=== PATIENT | male | born 1960 | race Caucasian/White ===

== ENCOUNTER 2021-06-29 11:40 | Inpatient (IN) | payer OTHER ==
[2021-06-29] MEDS ORDERED: SODIUM CHLORIDE 0.9% 1,000 ML IV STA (11:45)
[2021-06-29] MEDS ORDERED: HEPARIN SODIUM 1,000 UN/ML (10ML VL) IV PRN (11:59)
[2021-06-29] MEDS ORDERED: HEPARIN SOD,PORK IN 0.45% NACL 25,000 UNIT in 0.45% NACL 1 250ML.BAG IV SCH ×2 (12:00→18:15)
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
[2021-06-29] MEDS ORDERED: NALOXONE 0.4 MG/ML 1 ML VIAL IV PRN (12:25)
[2021-06-29] MEDS ORDERED: HYDROmorphone 0.5 MG/0.5 ML SYRINGE IVP PRN (12:25)
[2021-06-29 12:28] LABS: INR 0.9 (<1.2); Prothrombin Time 10.1 sec (9.0-12.0)
[2021-06-29] MEDS ORDERED: PANTOPRAZOLE 40 MG/10 ML VIAL IV SCH (12:30)
[2021-06-29 12:38] LABS: Basophils # (A) 0.2 k/uL (0-0.2); Basophils % (A) 2 %; Eosinophils # (A) 0.5 k/uL (0-0.7); Eosinophils % (A) 5 %; HCT 47.3 % (39.0-53.0); HGB 14.7 gm/dL (13.0-17.5); Lymphocytes # (A) 1.3 k/uL (1.0-4.8); Lymphocytes % (A) 13 %; MCH 29.4 pg (25.0-35.0); MCV 94.9 fL (80.0-100.0); Mean Platelet Volume 7.2; Monocytes # (A) 0.9 k/uL (0-1.0); Monocytes % (A) 9 %; Neutrophils # (A) 6.7 k/uL (1.3-7.7); Neutrophils % (A) 68 %; Platelet Count 372 k/uL (150-450); RBC 4.98 m/uL (4.30-5.90); RDW 14.3 % (11.5-15.5); WBC 9.9 k/uL (3.8-10.6)
[2021-06-29 12:45] LABS: Albumin 4.6 g/dL (3.5-5.0); Total Bilirubin 0.6 mg/dL (0.2-1.3); Total Protein 7.6 g/dL (6.3-8.2)
[2021-06-29] MEDS: SODIUM CHLORIDE 0.9% 1,000 ML IV SCH ×2 (12:47→18:37)
[2021-06-29 13:05] LABS: Potassium 4.7 mmol/L (3.5-5.1)
--- NOTE | 2021-06-29 13:32 | CT ---
EXAMINATION TYPE: CT angio abd aorta w/Runoff DATE OF EXAM: 06/29/2021 INDICATION: right lower leg occlusion CT DLP: 1594.8 mGy.cm Automated Exposure Control for Dose Reduction was Utilized. TECHNIQUE AND CONTRAST: CT scan of the abdomen, pelvis and lower extremity is performed without and with IV Contrast, patient injected with 100 mL of Isovue 370. MIP and 3-D reconstruction images were generated on an [employer] workstation and reviewed COMPARISON: Conventional angiogram dated 07/14/2015 FINDINGS: Extensive arterial atherosclerotic calcifications and atheromatous plaques. Large infrarenal abdomina l aortic aneurysm measuring up to 4 cm with large atheromatous plaque within. The opacified lumen wit hin the aortic aneurysm measures up to 14 mm. No evidence of complete occlusion of the abdominal aort a. No extension of aneurysm into the common iliac arteries. Stenosis of the origin of the celiac trunk yet patent distally. Atherosclerotic yet opacified superio r mesenteric artery. The inferior mesenteric artery is opacified down to the pelvis. Significant sten osis of the origin of the right renal artery yet patent distally. Severe stenosis of the proximal por tion of the left renal artery yet patent distally. Single renal artery supplying each kidney. Extensive atherosclerotic calcification of the iliac arteries and lower extremity arteries. Previous stents of the iliac arteries cannot be excluded. There is complete occlusion of the right common britni c artery as well as the right external iliac artery yet with distal reconstitution likely via collate rals. Patent inferior epigastric arteries. Suboptimal assessment of the internal iliac arteries due t o extensive calcification is apparently opacified. Opacified left common and left external iliac batsheva jolynn without significant stenosis or occlusion. Multiple segments of significant stenosis of the right common femoral, and to a lesser extent the rig ht superficial femoral and right popliteal arteries yet patent distally. Opacified right deep femoral artery with atherosclerotic changes. The right leg arteries are seen opacified down to the ankle. Mu ltiple segments of stenosis are seen involving the left common femoral artery, left superficial femor al artery and left popliteal artery with almost complete occlusion of the right superficial femoral a rtery at its mid to inferior aspects. Opacified atherosclerotic left leg arteries down to the ankle. Grossly unremarkable liver, gallbladder, spleen, pancreas and adrenals. Small left kidney, possibly d ue to chronic left renal artery stenosis. Unremarkable right kidney. Grossly unremarkable urinary javier dder, prostate and seminal vesicles. No gross bowel abnormality. Scattered uncomplicated colonic dive rticulosis. Coronary arterial atherosclerotic calcifications. Small bilateral gynecomastia changes. L eft fat-containing inguinal hernia. No suspicious lymphadenopathy or sizable ascites. No gross aggres sive bone lesion. IMPRESSION: Infrarenal abdominal aortic partially thrombosed aneurysm as detailed above. Extensive arterial ather osclerotic calcifications with complete occlusion of the right common iliac artery and right external iliac arteries as described above. Segments of severe stenosis of the renal arteries and segments of the lower extremity arteries as det dave above. Recommend vascular surgery consultation. Other findings as detailed above.
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
[2021-06-29] MEDS: NICOTINE 21MG/24HR PATCH TRANSDERM SCH (14:56)
--- NOTE | 2021-06-29 15:08 | XR ---
EXAMINATION TYPE: XR chest 1V portable DATE OF EXAM: 06/29/2021 CLINICAL HISTORY: Difficulty breathing and tobacco use. TECHNIQUE: Single AP portable upright view of the chest is obtained. COMPARISON: Chest x-ray from September 18, 2013 FINDINGS: No suspicious focal airspace opacity, pleural effusion, or pneumothorax seen bilaterally. Cardiac silhouette size is mildly enlarged on current exam. Osseous structures are intact. Overlying EKG leads seen currently. IMPRESSION: Mild cardiomegaly without acute pulmonary process.
[2021-06-29] MEDS: IPRATROPIUM-ALBUTEROL 3 ML NEB INHALATION SCH ×2 (15:21→21:02)
[2021-06-29] MEDS ORDERED: IV FLUID CONTINUATION 1,000 ML IV ONE (17:24)
[2021-06-29] MEDS ORDERED: fentaNYL (PF) 50 MCG/ML 2 ML AMP ONE (17:29)
[2021-06-29] MEDS: fentaNYL (PF) 50 MCG/ML 2 ML AMP IVP ONE ×2 (17:48→18:29)
[2021-06-29] MEDS: MIDAZOLAM 2 MG/2 ML VIAL IVP ONE ×2 (17:48→18:29)
[2021-06-29] MEDS ORDERED: LIDOCAINE 1% INJ 10MG/ML (30 ML VIAL-PF) SQ ONE (17:53)
[2021-06-29] MEDS ORDERED: SODIUM CHLORIDE 0.9% 1,000 ML IV ONE (17:55)
[2021-06-29] MEDS ORDERED: IOPAMIDOL-250 100ML BTL INTRAARTER ONE (18:25)
--- NOTE | 2021-06-29 18:28 | P.PCN ---
Date of Procedure: 06/29/21 Operative Findings: Percutaneous peripheral arterial intervention Performing physician Can Ott MD Procedure performed #1 placement of ultrasonic catheter in the right common and right external iliac arteries #2 placement of infusion catheter in the right common and right external iliac arteries #3 an aortogram and bilateral iliacs angiogram #4 ultrasound-guided access of the right common femoral artery Indication This is a 61-year-old gentleman with bilateral lower extremities peripheral arterial disease and status post bilateral iliac stenting who presented to the office today for follow-up was complaining of right foot discomfort. He was found to have cold foot. He was found to have no pulse in the pedal or popliteal or femoral condyle right side. He was sent to the emergency departm ent and underwent a CTA and that revealed occluded right common and right external iliac arteries. The decision was made toward placement of infusion catheter in the right common and right external iliac artery with adjunctive use of ultrasonic catheter. Approach Right common femoral artery Complication None Level of sedation Moderate with sedation length of 22 minutes Procedure description After obtaining an informed consent the patient was brought to the cardiac greens laborer. The right common femoral artery was cannulated using micropuncture technique, the micropuncture wire passed easily then I placed a 6-Kittitian sheath at the right common femoral artery and that was a 6-Kittitian 11 cm sheath. After that I advanced an 035 stiff the Glidewire through the right common and the right external and right common iliac artery all the way to the aorta. Subsequently I advanced an angiographic catheter to the aorta just above the bifurcation. I did perform an aortogram and bilateral iliac angiogram using a power injection and digital subtraction and that revealed occluded right common and right external iliac arteries were we were able to find the landmark of the proximal and distal occlusion. Under fluoroscopy guidance I advanced the infusion catheter overall 35 wire to the distal aorta and subsequently the ultrasonic catheter was advanced inside the infusion catheter. That was also performed under fluoroscopy guidance. The catheters and the sheath secured using sutures. The procedure was completed without any complication Postprocedure management #1 Continue TPA infusion overnight #2 Bring the patient for second look tomorrow morning
[2021-06-29] MEDS: ALTEPLASE 10 MG in SODIUM CHLORIDE 0.9% 90 ML IA ONE (18:36)
[2021-06-29 18:56] LABS: Glucose,Whole Blood 82 mg/dL (75-99)
[2021-06-29] MEDS: HYDROmorphone 1 MG/ML 1 ML SYRINGE IVP PRN ×2 (19:04→22:09)
[2021-06-29 20:17] LABS: HCT 43.5 % (39.0-53.0); HGB 13.7 gm/dL (13.0-17.5); MCH 29.9 pg (25.0-35.0); MCHC 31.6 g/dL (31.0-37.0); MCV 94.6 fL (80.0-100.0); Mean Platelet Volume 7.1; Platelet Count 373 k/uL (150-450); RDW 14.9 % (11.5-15.5); WBC 9.9 k/uL (3.8-10.6)
[2021-06-29] MEDS: PANTOPRAZOLE 40 MG/10 ML VIAL IV SCH (20:19)
[2021-06-29] MEDS: ATORVASTATIN 80 MG TAB PO SCH (20:19)
[2021-06-29 20:25] LABS: INR 0.9 (<1.2); Partial Thromboplastin Time 31.4 sec (22.0-30.0); Prothrombin Time 9.9 sec (9.0-12.0)
[2021-06-29] MEDS ORDERED: ATORVASTATIN 20 MG TAB PO SCH (21:00)
[2021-06-29] MEDS: BUDESONIDE 1 MG/2 ML NEBU INHALATION SCH (21:02)
[2021-06-29 21:07] LABS: Nucleated Red Blood Cells 0 /100 WBC (0-0); Total Cells Counted 100
[2021-06-29 21:13] LABS: Eosinophils # (M) 0.79 k/uL (0-0.7); Lymphocytes # (M) 2.28 k/uL (1.0-4.8); Monocytes # (M) 0.99 k/uL (0-1.0); Neutrophils # (M) 5.64 k/uL (1.3-7.7); Neutrophils % (M) 57 %
[2021-06-29 21:14] LABS: RBC Morphology Normal
[2021-06-30] MEDS: HYDROmorphone 1 MG/ML 1 ML SYRINGE IVP PRN ×7 (01:00→22:26)
[2021-06-30] MEDS: ALTEPLASE 10 MG in SODIUM CHLORIDE 0.9% 90 ML IA ONE (01:01)
[2021-06-30 01:29] LABS: Partial Thromboplastin Time 25.4 sec (22.0-30.0)
[2021-06-30 07:21] LABS: Basophils # (A) 0.1 k/uL (0-0.2); Basophils % (A) 1 %; Eosinophils # (A) 0.4 k/uL (0-0.7); Eosinophils % (A) 4 %; HCT 37.8 % (39.0-53.0); HGB 11.9 gm/dL (13.0-17.5); Lymphocytes % (A) 11 %; MCH 29.9 pg (25.0-35.0); MCHC 31.4 g/dL (31.0-37.0); MCV 95.4 fL (80.0-100.0); Mean Platelet Volume 7.9; Monocytes % (A) 11 %; Neutrophils # (A) 6.4 k/uL (1.3-7.7); Neutrophils % (A) 70 %; Platelet Count 275 k/uL (150-450); RBC 3.97 m/uL (4.30-5.90); RDW 14.4 % (11.5-15.5); WBC 9.2 k/uL (3.8-10.6)
[2021-06-30 07:31] LABS: INR 0.9 (<1.2); Partial Thromboplastin Time 26.6 sec (22.0-30.0); Prothrombin Time 10.4 sec (9.0-12.0)
[2021-06-30] MEDS ORDERED: MIDAZOLAM 2 MG/2 ML VIAL IV ONE (08:03)
[2021-06-30] MEDS ORDERED: fentaNYL (PF) 50 MCG/ML 2 ML AMP IV ONE (08:03)
[2021-06-30] MEDS ORDERED: LIDOCAINE 1% INJ 10MG/ML (5 ML VIAL-PF) SQ ONE (08:05)
[2021-06-30] MEDS ORDERED: IV FLUID CONTINUATION 1,000 ML IV ONE ×2 (08:12)
[2021-06-30] MEDS: IPRATROPIUM-ALBUTEROL 3 ML NEB INHALATION SCH ×4 (08:14→20:05)
[2021-06-30] MEDS: BUDESONIDE 1 MG/2 ML NEBU INHALATION SCH ×2 (08:14→20:05)
--- NOTE | 2021-06-30 08:34 | IR ---
EXAMINATION TYPE: IR transcath infusion therapy DATE OF EXAM: 06/29/2021 COMPARISON: NONE HISTORY: Fluoroscopy time. Fluoroscopy was provided to the referring clinician.
[2021-06-30] MEDS ORDERED: ALTEPLASE 10 MG in SODIUM CHLORIDE 0.9% 90 ML IA ONE (08:35)
--- NOTE | 2021-06-30 08:38 | P.PCN ---
Date of Procedure: 06/30/21 Operative Findings: Percutaneous peripheral arterial intervention Performing physician Can Ott MD Procedure performed #1 removal of ultrasonic catheter from the right common and right external iliac arteries #2 placement of infusion catheter with multiple hold in the right common and right external iliac arteries #3 an aortogram and bilateral common and external iliac arteries angiogram (second look) Indication This is a 61-year-old gentleman with bilateral lower extremities peripheral arterial disease and status post bilateral iliac stenting who presented to the office today for follow-up was complaining of right foot discomfort. He was found to have cold foot. He was found to have no pulse in the pedal or popliteal or femoral condyle right side. [facility] and that revealed occluded right common and right external iliac arteries. He underwent yesterday placement of ultrasonic catheter in the right common and right external iliac artery. He was brought today for second look. Approach Right common femoral artery Complication None Level of sedation Moderate with sedation length of 30 minutes Procedure description After obtaining an informed consent the patient was brought to the cardiac cardiac cath technician. Initially the ultrasonic catheter was removed over an 035 wire and subsequently replaced an angiographic catheter over the old 35 wire were the catheter was advanced all the way to the distal aorta. An aortogram and right common and external iliac artery angiogram performed using a power injection. The angiogram revealed occluded right common and right external iliac artery with now opacification of the right common and right profunda and right SFA. The flow somewhat is better but not ideal. For that reason I decided to place an infusion catheter which was advanced over the 35 wire to the aorta proximally and to the tip of the sheath distally. I'm going to infuse the patient with TPA almost normal at higher dose of 1.5 mL per hour for additional 24 hours and the patient will be brought tomorrow for second look. Postprocedure management #1 Continue TPA infusion overnight #2 Bring the patient for second look tomorrow morning
[2021-06-30] MEDS: ALTEPLASE 10 MG in SODIUM CHLORIDE 0.9% 90 ML IA SCH ×3 (09:30→20:34)
[2021-06-30] MEDS: HEPARIN SOD,PORK IN 0.45% NACL 25,000 UNIT in 0.45% NACL 1 250ML.BAG IV SCH ×2 (09:30→09:40)
[2021-06-30] MEDS: NICOTINE 21MG/24HR PATCH TRANSDERM SCH (09:39)
--- NOTE | 2021-06-30 09:48 | IR ---
EXAMINATION TYPE: IR angio abdominal w runoff DATE OF EXAM: 06/30/2021 COMPARISON: NONE HISTORY: Fluoroscopy time. Fluoroscopy was provided to the referring clinician.
[2021-06-30] MEDS: diphenhydrAMINE 25 MG CAP PO PRN ×2 (10:12→22:35)
[2021-06-30] MEDS: PANTOPRAZOLE 40 MG/10 ML VIAL IV SCH ×2 (10:12→20:57)
[2021-06-30] MEDS: CLOPIDOGREL 75 MG TAB PO SCH (10:13)
[2021-06-30] MEDS: SODIUM CHLORIDE 0.9% 1,000 ML IV SCH ×2 (10:13→20:57)
[2021-06-30 14:39] LABS: INR 1.1 (<1.2); Partial Thromboplastin Time 30.2 sec (22.0-30.0); Prothrombin Time 11.5 sec (9.0-12.0)
--- NOTE | 2021-06-30 14:45 | P.PN ---
Progress Note - Text Progress Note Date: 06/30/21 Chief Complaint: Right leg symptoms This is a 61-year-old patient who follows with Myrna Stanton. Chronic stable medical conditions include CAD with stent, COPD, GERD, hard of hearing, hypertension, hyperlipidemia, osteoarthritis, prostate disorder, depressed stent to the peripheral arteries. Patient had previous stent to LAD 2014. Patient on June 06 had a significant GI bleed when he described both vomiting blood and dock stools. He presented to [facility]. From there he was transferred to [facility]. He sees EGD was carried out on several vessels were cauterized. He was due to have a camera study tomorrow. Patient says states since he was discharged on June 09 he's been having pain in the right leg more significant. His feet are always cold. He started developing more cramping. No symptoms yesterday. When down to see his transit bus operator Dr. Hadley from bed he was sent in by Dr. Villegas who called me to admit the patient. Patient be started on IV heparin. CT angiogram in the ER showed infrarenal abdominal aortic showing significant arterial disease including complete occlusion of the right, and a lytic artery as well as the right external iliac artery with some distal reconstitution likely via collaterals. June 30: Patient yesterday had the EKOS system placed on the right site in the common femoral artery/right external iliac artery by Dr. Villegas. TPA was infused. EKOS was subsequently discontinued. Currently on TPN IV heparin. In the ICU. Having significant pain in the right leg. This discoloration of the toes. Today repeat angiogram revealed occluded right common and right external iliac artery with no opacification of the right common and right profunda and right SFA. At this point Dr. Villegas is continuing with infusing TPA. I'm arranging for a small bowel capsule endoscopy to be done on . Active Medications Albuterol/Ipratropium (Ipratropium-Albuterol 3 Ml Neb) 3 ml INHALATION RT-QID [facility] Last Admin: 06/30/21 12:02 Dose: Not Given Documented by: Atorvastatin Calcium (Atorvastatin 80 Mg Tab) 80 mg PO HS [facility] Last Admin: 06/29/21 20:19 Dose: 80 mg Documented by: Budesonide (Budesonide 1 Mg/2 Ml Nebu) 1 mg INHALATION RT-BID [facility] Last Admin: 06/30/21 08:14 Dose: Not Given Documented by: Clopidogrel Bisulfate (Clopidogrel 75 Mg Tab) 75 mg PO DAILY [facility] Last Admin: 06/30/21 10:13 Dose: 75 mg Documented by: Diphenhydramine HCl (Diphenhydramine 25 Mg Cap) 25 mg PO BID PRN PRN Reason: Agitation Last Admin: 06/30/21 10:12 Dose: 25 mg Documented by: Heparin Sodium (Porcine) (Heparin Sodium 1,000 Un/Ml (10ml Vl)) 0 unit IV PER PROTOCOL PRN; Protocol PRN Reason: Low PTT Hydromorphone HCl (Hydromorphone 1 Mg/Ml 1 Ml Syringe) 1 mg IVP Q3HR PRN PRN Reason: Severe Pain Last Admin: 06/30/21 13:09 Dose: 1 mg Documented by: Hydromorphone HCl (Hydromorphone 0.5 Mg/0.5 Ml Syringe) 0.5 mg IVP Q3HR PRN PRN Reason: Moderate Pain Sodium Chloride (Saline 0.9%) 1,000 mls @ 75 mls/hr IV .[id number] [facility] Last Admin: 06/30/21 10:13 Dose: 75 mls/hr Documented by: Heparin Sodium/Sodium Chloride (25,000 unit/ Sodium Chloride) 250 mls @ 5 mls/hr IV .Q24H [facility] Last Admin: 06/30/21 09:40 Dose: 5 mls/hr Documented by: Alteplase, Recombinant 10 mg/ (Sodium Chloride) 100 mls @ 15 mls/hr IA .Q6H40M [facility]; Protocol Stop: 07/01/21 08:36 Last Admin: 06/30/21 09:40 Dose: 1.5 mg/hr, 15 mls/hr Documented by: Naloxone HCl (Naloxone 0.4 Mg/Ml 1 Ml Vial) 0.2 mg IV Q2M PRN PRN Reason: Opioid Reversal Nicotine (Nicotine 21mg/24hr Patch) 1 patch TRANSDERM DAILY [facility] Last Admin: 06/30/21 09:39 Dose: Not Given Documented by: Pantoprazole Sodium (Pantoprazole 40 Mg/10 Ml Vial) 40 mg IV BID [facility] Last Admin: 06/30/21 10:12 Dose: 40 mg Documented by: Past medical history to include: Recent upper GI bleed on June 06 with cauterization of vessels. More details unknown. CAD with stent, COPD, GERD, stroke, hypertension, hyperlipidemia, osteoporosis, PAD, Social history: Lives with his friend. Drinks up to 6 beers a day. Smokes about a pack to pack and a half for last 40 years. Occasional marijuana. Family history: DVT, cancer Physical examination: VITAL SIGNS: 98.9, 80, 25, 142/80, 93% on 2 L GENERAL: reclining in bed awake tired. EYES: Pupils equal. Conjunctiva normal. HEENT: External appearance of nose and ears normal, oral cavity grossly normal. NECK: JVD not raised; masses not palpable. HEART: First and second heart sounds are normal; no edema. LUNGS: Respiratory rate increased; decreased breath sounds, wheezing. ABDOMEN: Soft, nontender, liver spleen not palpable, no masses palpable. PSYCH: Alert and oriented x3; mood and affect anxiousl. MUSCULOSKELETAL:No Clubbing/cyanosis;muscles-grossly intact EXTREMITIES: Not palpable dorsalis pedis in both extremities. Decreased sensation distally. Right leg distal toes blue discoloration INVESTIGATIONS, reviewed in the clinical context: June 30: White count 13.2 hemoglobin 11.9 platelets 275 creatinine 1.17 White count 9.9 hemoglobin 14.7 platelets 372 potassium 4.7 creatinine 1.13 EKG tracing personally reviewed by me-sinus rhythm, 77 CT angiography of the abdomen out with runoff: Extensive PAD. More details in the report. Complete occlusion of the right common iliac artery and of the as well as the right external iliac artery. The distal reconstitution likely via collaterals. Assessment and plan: -Acute occlusion in a patient with known severe PAD of the right common iliac artery. : Slow to respond Patient is a high risk of bleeding given his recent GI bleed. Patient underwent EKOS on June 29. Today getting IV TPN IV heparin. -Recent upper GI bleed with gastric vessels cauterization. We'll try to obtain report from [place]. Increase PPI to twice daily. Patient was due to get up capsule endoscopy at [facility]. GI services not available the hospital this week. Capsule endoscopy being scheduled for this . -Severe PAD in a patient who continues smoke and prior intervention. Antiplatelet agents. Lipitor. -Acute COPD exacerbation in a current smoker DuoNeb 4 times a day. Pulmicort nebulizer twice a day -Chronic nicotine dependence, current cigarette smoker Nicotine patch 21 -Primary osteoarthritis multiple joints bilaterally Tylenol when necessary -Essential hypertension -Hyperlipidemia Increase Lipitor to 80 mg daily at bedtime -GERD PPI -CAD with a prior history of stent Plavix. Lipitor. -IV heparin monitoring Follow PTT -IV TPA monitoring Continue current medication treatment plan. IV heparin. IV TPA. Small bowel capsule endoscopy being arranged for . Discussed with patient.
[2021-06-30 20:55] LABS: Partial Thromboplastin Time 31.6 sec (22.0-30.0); Prothrombin Time 11.1 sec (9.0-12.0)
[2021-06-30] MEDS: ATORVASTATIN 80 MG TAB PO SCH (20:56)
[2021-07-01] MEDS: HYDROmorphone 1 MG/ML 1 ML SYRINGE IVP PRN ×7 (01:28→22:18)
[2021-07-01] MEDS: ALTEPLASE 10 MG in SODIUM CHLORIDE 0.9% 90 ML IA SCH (03:26)
[2021-07-01 06:59] LABS: Basophils # (A) 0.1 k/uL (0-0.2); Basophils % (A) 1 %; Eosinophils # (A) 0.4 k/uL (0-0.7); Eosinophils % (A) 3 %; HCT 36.1 % (39.0-53.0); HGB 11.3 gm/dL (13.0-17.5); Hypochromasia Slight; Lymphocytes # (A) 1.2 k/uL (1.0-4.8); Lymphocytes % (A) 10 %; MCH 30.1 pg (25.0-35.0); MCHC 31.4 g/dL (31.0-37.0); MCV 96.1 fL (80.0-100.0); Mean Platelet Volume 7.9; Monocytes # (A) 1.1 k/uL (0-1.0); Monocytes % (A) 9 %; Neutrophils # (A) 9.1 k/uL (1.3-7.7); Neutrophils % (A) 75 %; Platelet Count 237 k/uL (150-450); RBC 3.76 m/uL (4.30-5.90); RDW 14.2 % (11.5-15.5); WBC 12.1 k/uL (3.8-10.6)
[2021-07-01 07:08] LABS: Partial Thromboplastin Time 28.8 sec (22.0-30.0); Prothrombin Time 11.1 sec (9.0-12.0)
[2021-07-01 07:35] LABS: Potassium 4.3 mmol/L (3.5-5.1)
[2021-07-01] MEDS: NICOTINE 21MG/24HR PATCH TRANSDERM SCH (08:48)
[2021-07-01] MEDS: PANTOPRAZOLE 40 MG/10 ML VIAL IV SCH ×2 (08:57→22:05)
[2021-07-01] MEDS: CLOPIDOGREL 75 MG TAB PO SCH (08:57)
[2021-07-01] MEDS: IPRATROPIUM-ALBUTEROL 3 ML NEB INHALATION SCH ×4 (09:05→19:40)
[2021-07-01] MEDS: BUDESONIDE 1 MG/2 ML NEBU INHALATION SCH ×2 (09:05→19:40)
[2021-07-01] MEDS: SODIUM CHLORIDE 0.9% 1,000 ML IV SCH ×2 (09:15→22:21)
--- NOTE | 2021-07-01 10:57 | P.PN ---
Subjective Principal diagnosis: Patient denies any chest discomfort or shortness of breath He is lying comfortably in bed His right leg is still discolored following TPA infusion in the right common and right iliac artery along with ultrasonic catheter placement He is awaiting reevaluation today invasively On examination her pressure 119/84 mmHg pulse rate in the 80s afebrile Normal respirations Normal heart sounds normal S1 normal S2 Breath sounds are clear Very thready pulses in the lower extremities. Impression Severe peripheral vascular disease, presenting with a cold leg Status post placement of a catheter in the right femoral iliac arteries for TPA infusion, status post ultrasonic mechanical disruption Reevaluation today angiographically Plan Continue Plavix continue IV heparin Continue statins Objective - Vital Signs Vital signs: Vital Signs Temp 98.5 F 07/01/21 08:00 Pulse 88 07/01/21 09:00 Resp 14 07/01/21 09:00 BP 119/84 07/01/21 09:00 Pulse Ox 95 07/01/21 09:00 Intake & Output 06/30/21 07/01/21 07/01/21 18:59 06:59 18:59 Intake Total 1165 1240 285 Output Total 1230 1725 400 Balance -65 -485 -115 Intake: IV 1065 1140 285 0.9 Coolant 35 Alteplase 10 mg In Sodium 135 180 45 Chloride 0.9% 90 ml @ 1. 5 MG/HR 15 mls/hr IA . Q6H40M [facility] Rx#:[id number] Heparin Sod,Pork in 0.45% 45 60 15 NaCl 25,000 unit In 0.45 % NaCl 1 250ml.bag @ 5 mls/hr IV .Q24H [facility] Rx#: [id number] Sodium Chloride 0.9% 1, 750 900 225 000 ml @ 75 mls/hr IV . Q33H51M [facility] Rx#:[id number] Intake, IV Titration 100 100 Amount Alteplase 10 mg In Sodium 100 100 Chloride 0.9% 90 ml @ 1. 5 MG/HR 15 mls/hr IA . Q6H40M [facility] Rx#:[id number] Output: Urine 1230 1725 400 Other: Voiding Method Urinal Urinal # Voids 1 1 2 - Labs CBC & Chem 7: 07/01/21 05:35 07/01/21 05:35 Labs: Abnormal Lab Results - Last 24 Hours (Table) 06/30/21 06/30/21 07/01/21 Range/Units 13:49 20:27 05:35 WBC 12.1 H (3.8-10.6) k/uL RBC 3.76 L (4.30-5.90) m/uL Hgb 11.3 L (13.0-17.5) gm/dL Hct 36.1 L (39.0-53.0) % Neutrophils # 9.1 H (1.3-7.7) k/uL Monocytes # 1.1 H (0-1.0) k/uL APTT 30.2 H 31.6 H (22.0-30.0) sec Sodium (137-145) mmol/L Carbon Dioxide (22-30) mmol/L 07/01/21 Range/Units 05:35 WBC (3.8-10.6) k/uL RBC (4.30-5.90) m/uL Hgb (13.0-17.5) gm/dL Hct (39.0-53.0) % Neutrophils # (1.3-7.7) k/uL Monocytes # (0-1.0) k/uL APTT (22.0-30.0) sec Sodium 134 L (137-145) mmol/L Carbon Dioxide 19 L (22-30) mmol/L
[2021-07-01] MEDS ORDERED: fentaNYL (PF) 50 MCG/ML 2 ML AMP IV ONE (12:53)
[2021-07-01] MEDS ORDERED: MIDAZOLAM 2 MG/2 ML VIAL IV ONE (12:53)
[2021-07-01] MEDS ORDERED: IV FLUID CONTINUATION 800 ML IV ONE (12:55)
[2021-07-01] MEDS ORDERED: LIDOCAINE 1% INJ 10MG/ML (5 ML VIAL-PF) SQ ONE ×2 (13:00)
[2021-07-01] MEDS ORDERED: HYDROmorphone 1 MG/ML 1 ML SYRINGE IVP ONE (13:22)
[2021-07-01] MEDS ORDERED: NALOXONE 0.4 MG/ML 1 ML VIAL IVP PRN (13:27)
[2021-07-01] MEDS ORDERED: SODIUM CHLORIDE 0.9% 1,000 ML in EMPTY BAG 1 BAG IV SCH (13:30)
[2021-07-01] MEDS ORDERED: IOPAMIDOL-250 100ML BTL INTRAARTER ONE (13:30)
--- NOTE | 2021-07-01 13:38 | P.PCN ---
Date of Procedure: 07/01/21 Operative Findings: Percutaneous peripheral arterial intervention Performing physician Can Ott MD Procedure performed #1 removal of infusion catheter from the right common and right external iliac arteries #2 an aortogram and right common iliac and right external iliac artery angiogram "second look" #3 successful balloon angioplasty of the right common iliac artery #4 selective right common femoral artery angiogram Indication This is a 61-year-old gentleman with bilateral lower extremities peripheral arterial disease and status post bilateral iliac stenting who presented to the office today for follow-up was complaining of right foot discomfort. He was found to have cold foot. He was found to have no pulse in the pedal or popliteal or femoral condyle right side. He was sent to the emergency department and underwent a CTA and that revealed occluded right common and right external iliac arteries. Initially ultrasonic catheter was placed and the following angiogram showed unsatisfactory results. Subsequently an infusion catheter was placed and he was brought today for second look. Approach Right common femoral artery Complication None Level of sedation Moderate with sedation length of 22 minutes Procedure description After obtaining an informed consent the patient was brought to the cardiac operations label clerk. The infusion catheter was removed over an 035 stiff Glidewire. Subsequently advanced a 5-English pigtail catheter to the distal aorta. I did an abdominal aortogram and right common and right external iliac arteries angiogram. That showed that the right external is patent with lesion involving the right common iliac artery which is in-stent. I did balloon angioplasty using 6 mm x 40 mm balloon. The following angiogram showed excellent angiographic results. After that I did selective right common femoral artery angiogram with injection through the sheath and that showed satisfactory results. Finally up with the sheath from the right groin after ACT was checked and came in to be below 175. After that I was able to obtain a Doppler signal in the right posterior tibial artery. Postprocedure management #1 antiplatelet and anticoagulation #2 monitor the right foot very closely #3 follow-up with the base
--- NOTE | 2021-07-01 13:54 | IR ---
EXAMINATION TYPE: IR towboat captain iliac DATE OF EXAM: 07/01/2021 COMPARISON: NONE HISTORY: Fluoroscopy time. Fluoroscopy was provided to the referring clinician.
[2021-07-01] MEDS ORDERED: MAGNESIUM CITRATE 296 ML BOTTLE PO ONE (20:00)
--- NOTE | 2021-07-01 20:29 | P.PN ---
Progress Note - Text Progress Note Date: 07/01/21 Chief Complaint: Right leg symptoms This is a 61-year-old patient who follows with Myrna Stanton. Chronic stable medical conditions include CAD with stent, COPD, GERD, hard of hearing, hypertension, hyperlipidemia, osteoarthritis, prostate disorder, depressed stent to the peripheral arteries. Patient had previous stent to LAD 2014. Patient on June 06 had a significant GI bleed when he described both vomiting blood and dock stools. He presented to [facility]. From there he was transferred to [facility]. He sees EGD was carried out on several vessels were cauterized. He was due to have a camera study tomorrow. Patient says states since he was discharged on June 09 he's been having pain in the right leg more significant. His feet are always cold. He started developing more cramping. No symptoms yesterday. When down to see his charge histotechnologist Dr. Hadley from bed he was sent in by Dr. Villegas who called me to admit the patient. Patient be started on IV heparin. CT angiogram in the ER showed infrarenal abdominal aortic showing significant arterial disease including complete occlusion of the right, and a lytic artery as well as the right external iliac artery with some distal reconstitution likely via collaterals. June 30: Patient yesterday had the EKOS system placed on the right site in the common femoral artery/right external iliac artery by Dr. Villegas. TPA was infused. EKOS was subsequently discontinued. Currently on TPN IV heparin. In the ICU. Having significant pain in the right leg. This discoloration of the toes. Today repeat angiogram revealed occluded right common and right external iliac artery with no opacification of the right common and right profunda and right SFA. At this point Dr. Villegas is continuing with infusing TPA. I'm arranging for a small bowel capsule endoscopy to be done on . July 01: Patient was taken back to the [facility] [facility] by Dr. Villegas today. Successful balloon angioplasty of the right common iliac artery was done. Right external iliac is patent. Capsule study has been arranged for tomorrow. This point will continue with Plavix and eliquis. PPI to continue. Patient has remained at a high risk of bleeding. Discussed with patient. Patient had TPA leading to this morning. Currently on IV heparin. Active Medications Albuterol/Ipratropium (Ipratropium-Albuterol 3 Ml Neb) 3 ml INHALATION RT-QID [facility] Last Admin: 07/01/21 19:40 Dose: Not Given Documented by: Apixaban (Apixaban 2.5 Mg Tablet) 2.5 mg PO BID [facility]; Protocol Atorvastatin Calcium (Atorvastatin 80 Mg Tab) 80 mg PO HS [facility] Last Admin: 06/30/21 20:56 Dose: 80 mg Documented by: Budesonide (Budesonide 1 Mg/2 Ml Nebu) 1 mg INHALATION RT-BID [facility] Last Admin: 07/01/21 19:40 Dose: Not Given Documented by: Clopidogrel Bisulfate (Clopidogrel 75 Mg Tab) 75 mg PO DAILY [facility] Last Admin: 07/01/21 08:57 Dose: 75 mg Documented by: Diphenhydramine HCl (Diphenhydramine 25 Mg Cap) 25 mg PO BID PRN PRN Reason: Agitation Last Admin: 06/30/21 22:35 Dose: 25 mg Documented by: Heparin Sodium (Porcine) (Heparin Sodium 1,000 Un/Ml (10ml Vl)) 0 unit IV PER PROTOCOL PRN; Protocol PRN Reason: Low PTT Hydromorphone HCl (Hydromorphone 1 Mg/Ml 1 Ml Syringe) 1 mg IVP Q3HR PRN PRN Reason: Severe Pain Last Admin: 07/01/21 18:57 Dose: 1 mg Documented by: Hydromorphone HCl (Hydromorphone 0.5 Mg/0.5 Ml Syringe) 0.5 mg IVP Q3HR PRN PRN Reason: Moderate Pain Sodium Chloride (Saline 0.9%) 1,000 mls @ 75 mls/hr IV .[id number] [facility] Last Admin: 07/01/21 09:15 Dose: 75 mls/hr Documented by: Heparin Sodium/Sodium Chloride (25,000 unit/ Sodium Chloride) 250 mls @ 5 mls/hr IV .Q24H [facility] Last Admin: 06/30/21 09:40 Dose: 5 mls/hr Documented by: Naloxone HCl (Naloxone 0.4 Mg/Ml 1 Ml Vial) 0.2 mg IV Q2M PRN PRN Reason: Opioid Reversal Naloxone HCl (Naloxone 0.4 Mg/Ml 1 Ml Vial) 0.2 mg IVP Q2M PRN PRN Reason: Opioid Reversal Nicotine (Nicotine 21mg/24hr Patch) 1 patch TRANSDERM DAILY [facility] Last Admin: 07/01/21 08:48 Dose: Not Given Documented by: Pantoprazole Sodium (Pantoprazole 40 Mg/10 Ml Vial) 40 mg IV BID [facility] Last Admin: 07/01/21 08:57 Dose: 40 mg Documented by: Past medical history to include: Recent upper GI bleed on June 06 with cauterization of vessels. More details unknown. CAD with stent, COPD, GERD, stroke, hypertension, hyperlipidemia, osteoporosis, PAD, Social history: Lives with his friend. Drinks up to 6 beers a day. Smokes about a pack to pack and a half for last 40 years. Occasional marijuana. Family history: DVT, cancer Physical examination: VITAL SIGNS: 87, 9, 104/57, 93% room air GENERAL: reclining in bed awake tired. EYES: Pupils equal. Conjunctiva normal. HEENT: External appearance of nose and ears normal, oral cavity grossly normal. NECK: JVD not raised; masses not palpable. HEART: First and second heart sounds are normal; no edema. LUNGS: Respiratory rate increased; decreased breath sounds, wheezing. ABDOMEN: Soft, nontender, liver spleen not palpable, no masses palpable. PSYCH: Alert and oriented x3; mood and affect anxiousl. MUSCULOSKELETAL:No Clubbing/cyanosis;muscles-grossly intact EXTREMITIES: . Decreased sensation distally. Right leg distal toes blue discoloration INVESTIGATIONS, reviewed in the clinical context: July 01: White count 12.1 hemoglobin 11.3 potassium 4.3 creatinine 1.16 June 30: White count 13.2 hemoglobin 11.9 platelets 275 creatinine 1.17 White count 9.9 hemoglobin 14.7 platelets 372 potassium 4.7 creatinine 1.13 EKG tracing personally reviewed by wv-sinus rhythm, 77 CT angiography of the abdomen out with runoff: Extensive PAD. More details in the report. Complete occlusion of the right common iliac artery and of the as well as the right external iliac artery. The distal reconstitution likely via collaterals. Assessment and plan: -Acute occlusion in a patient with known severe PAD of the right common iliac artery. : Slow to respond Patient is a high risk of bleeding given his recent GI bleed. Patient underwent EKOS on June 29. Today getting IV TPN IV heparin. -Recent upper GI bleed with gastric vessels cauterization. We'll try to obtain report from [place]. Increase PPI to twice daily. Patient was due to get up capsule endoscopy at [facility]. GI services not available the hospital this week. Capsule endoscopy being scheduled for this . -Severe PAD in a patient who continues smoke and prior intervention. Antiplatelet agents. Lipitor. -Acute COPD exacerbation in a current smoker DuoNeb 4 times a day. Pulmicort nebulizer twice a day -Chronic nicotine dependence, current cigarette smoker Nicotine patch 21 -Primary osteoarthritis multiple joints bilaterally Tylenol when necessary -Essential hypertension -Hyperlipidemia Increase Lipitor to 80 mg daily at bedtime -GERD PPI -CAD with a prior history of stent Plavix. Lipitor. -IV heparin monitoring Follow PTT -IV TPA monitoring: Discontinued DP discontinued earlier today. On IV heparin. Discussed with the patient. small bowel capsule endoscopy study tomorrow. Started on eliquis today. I about 40 minutes with over 25 minutes of discussion.
[2021-07-01] MEDS: ATORVASTATIN 80 MG TAB PO SCH (22:05)
[2021-07-01] MEDS: APIXABAN 2.5 MG TABLET PO SCH (22:05)
[2021-07-02] MEDS: HYDROmorphone 1 MG/ML 1 ML SYRINGE IVP PRN ×5 (02:35→15:05)
[2021-07-02 02:43] VITALS: TEMP 99
--- NOTE | 2021-07-02 06:33 | P.PRCINT ---
Percutaneous Coronary Int. - Percutaneous Coronary Intervention Percutaneous Coronary Intervention: PROCEDURES PERFORMED: Left heart catheterization, bilateral coronary angiography, PCI proximal mid circumflex with a 2.5 x 18 mm Xience JING, post dilated proximally with a 3.5 NC balloon, PCI of the mid circumflex and OM1 with a 2.25 x 15 mm Xience JING and overlapping Stas 2.0 x 8mm JING, CPR with cardioversion x 4 INDICATION: Non-STEMI, cardiac arrest, frequent ventricular fibrillation HISTORY: Patient is pleasant 61-year-old male who presented with recent fevers, chills, urinary issues with previous kidney stones and Grigsby catheters being placed. He had a cardiac arrest at home and was found to be in ventricular fibrillation and cardioversion and had approximately 45 minutes of downtime. He was found to have what elevated white blood cell count and urinary tract infection. He was treated with magnesium, amiodarone drip however continue to have ectopy and occasional ventricular fibrillation, ventricular tachycardia and was also tried on lidocaine with continued episode and therefore heart catheterization was recommended. PROCEDURE: After the risks, benefits and alternatives of the above mentioned procedure explained in detail with the patient's , informed consent was obtained. Patient was taken to the catheterization lab and prepped and draped in usual fashion. 1% lidocaine was used to anesthetize the right radial artery. A 6-[place] sheath was placed in the right radial artery using modified Seldinger technique. Left coronary angiography was performed with a 5-[place] JL 3.5 catheter and right coronary angiography was performed with a 5-[place] JR5 catheter in various views. A 5-[place] FR5 catheter was inserted into the left ventricle and pressure measurements were obtained. The RCA appeared to be a CARGO SERVICES COORDINATOR with collaterals which were well established. The circumflex had a 80% proximal lesion which was somewhat hazy and consideration of this being the culprit lesion. Therefore decision was made to perform PCI of the circumflex. A 6-[place]izen [place] CLS 3.5 guide was used to engage left main. A 0.014 whisper wire was advanced into the distal OM1 branch. There was a small caliber OM 2 branch with a ambiguous cap which also had collaterals and briefly attempted to wire this however unsuccessful. Balloon angioplasty was performed with a 2.5 x 12 mm balloon. Next a 3.0 and then a 3.5 noncompliant balloon was used. There was noted to be decreased flow into the OM1 branch and this was thought possibly related to a pseudoaneurysm and accordion related to the extreme tortuosity of the proximal portion of OM1 takeoff. Therefore decision was made to stent the proximal circumflex with a 2.5 x 18 mm Xience JING. The proximal portion of the stent was postdilated with a 3.5 noncompliant balloon. When the wire was pulled there was still no flow into the OM1 branch. Therefore the OM1 branch was rewired. There was a lesion at the mid circumflex right before the bifurcation of the OM1 and this was predilated as well as a proximal OM1 stenosis with a serial 1.5, 2.25 balloons. Next a 2.25 x 15 mm Xience JING was deployed from the mid circumflex into OM1. There was still a lesion at the distal end of the stent and therefore an additional 2.0 by 8mm Stas JING was deployed. During procedure patient did have V. fib arrest with frequent ventricular ectopy despite amiodarone bolus. Brief chest compressions were required and patient had cardioversion 4. The wire was pulled and final angiograms were performed. Intervention there was a proximal circumflex 80% stenosis and a proximal OM1 70% stenosis with RYLEE 3 flow and post intervention there was less than 10% stenosis and RYLEE-3 flow. There was mild 50 is 60% "pinching" of the AV groove circumflex felt best treated medically. The right radial sheath was left in place to be used as an arterial line. The patient tolerated the procedure well however was cardioverted 4 times and was still having frequent ventricular ectopy. Patient was transported back to the post catheterization holding area in stable condition. Conscious Sedation: Patient was monitored under the direct supervision of vision of myself for conscious sedation using Versed and fentanyl for a total duration of 155 minutes HEMODYNAMICS: Aorta: 107/56 GENET: 105/15, LVEDP 20 SELECTIVE CORONARY ARTERIOGRAPHY: LEFT MAIN: The left main is a large caliber vessel which bifurcates into the LAD and circumflex. There is no significant stenosis. LEFT ANTERIOR DESCENDING CORONARY ARTERY: LAD is a large caliber vessel which wraps around to the apex. There is a proximal LAD 30-40% stenosis and otherwise has mild luminal irregularities LEFT CIRCUMFLEX CORONARY ARTERY: Left circumflex is a moderate caliber vessel a proximal circumflex 80% stenosis, mid circumflex 70% stenosis at the level of bifurcation with OM1 branch, OM1 70% proximal stenosis. After OM1 there is a subtotal OM 2 within ambiguous stump. There are [id number] collaterals. RIGHT CORONARY ARTERY: The right coronary artery is a large caliber vessel which gives off a PDA and PLV branch and is the dominant vessel. There is proximal 100% RCA stenosis. FINAL IMPRESSION: 1. CAD as described above with 100% RCA stenosis, proximal circumflex 80% stenosis, mid circumflex 70% stenosis, OM1 70% stenosis, LAD 30-40% stenosis 2. Status post successful PCI proximal mid circumflex with a 2.5 x 18 mm Xience JING, post dilated proximally with a 3.5 NC balloon, PCI of the mid circumflex and OM1 with a 2.25 x 15 mm Xience JING and overlapping [place] 2.0 x 8mm JING 3. Elevated left-sided filling pressures. 4. V. fib arrest status post cardioversion 4 PLAN: 1. Aggressive risk factor modification per most recent ACC/AHA guidelines. 2. Continue dual antiplatelets with aspirin and Brilinta. 3. Initial consideration of an acute thrombus of the circumflex over circumflex be more like a chronic lesion with heavy calcification. Presentation may be consistent with sepsis causing increased ischemia and V. fib. Continue to attempt to treat medically. May consider future intervention of the RCA CARGO SERVICES COORDINATOR pending clinical course.
[2021-07-02] MEDS: BUDESONIDE 1 MG/2 ML NEBU INHALATION SCH ×2 (07:12→15:22)
[2021-07-02] MEDS: IPRATROPIUM-ALBUTEROL 3 ML NEB INHALATION SCH ×4 (07:12→15:22)
[2021-07-02] MEDS: PANTOPRAZOLE 40 MG/10 ML VIAL IV SCH (08:21)
[2021-07-02] MEDS: CLOPIDOGREL 75 MG TAB PO SCH (08:24)
[2021-07-02] MEDS: APIXABAN 2.5 MG TABLET PO SCH (08:24)
[2021-07-02] MEDS: NICOTINE 21MG/24HR PATCH TRANSDERM SCH (08:31)
[2021-07-02] MEDS: HEPARIN SOD,PORK IN 0.45% NACL 25,000 UNIT in 0.45% NACL 1 250ML.BAG IV SCH (10:48)
[2021-07-02 11:06] LABS: Basophils # (A) 0.1 k/uL (0-0.2); Basophils % (A) 1 %; Eosinophils # (A) 0.4 k/uL (0-0.7); Eosinophils % (A) 4 %; HCT 34.9 % (39.0-53.0); HGB 10.9 gm/dL (13.0-17.5); Lymphocytes # (A) 0.9 k/uL (1.0-4.8); Lymphocytes % (A) 8 %; MCH 29.5 pg (25.0-35.0); MCHC 31.1 g/dL (31.0-37.0); Mean Platelet Volume 7.5; Monocytes % (A) 9 %; Neutrophils # (A) 8.5 k/uL (1.3-7.7); Neutrophils % (A) 76 %; Platelet Count 223 k/uL (150-450); RBC 3.67 m/uL (4.30-5.90); RDW 14.3 % (11.5-15.5); WBC 11.2 k/uL (3.8-10.6)
[2021-07-02 11:19] LABS: Albumin 3.5 g/dL (3.5-5.0); Calcium 8.7 mg/dL (8.4-10.2); Total Bilirubin 0.7 mg/dL (0.2-1.3); Total Protein 5.8 g/dL (6.3-8.2)
[2021-07-02] MEDS: diphenhydrAMINE 25 MG CAP PO PRN (11:24)
[2021-07-02 16:11] VITALS: BP 153/76; PULSE 81; RESP 17
--- NOTE | 2021-07-03 15:00 | P.DS ---
Providers Date of admission: 06/29/21 12:25 Expected date of discharge: 07/02/21 Attending physician: Kamron Adam Consults: 06/29/21 12:26 Consult Physician Urgent Consulting Provider: Can Ott Consult Reason/Comments: Arterial occlusion Do you want consulting provider notified?: Already Contacted Primary care physician: Alivia Stanton [facility] Course: Chief Complaint: Right leg symptoms This is a 61-year-old patient who follows with Myrna Stanton. Chronic stable medical conditions include CAD with stent, COPD, GERD, hard of hearing, hypertension, hyperlipidemia, osteoarthritis, prostate disorder, depressed stent to the peripheral arteries. Patient had previous stent to LAD 2014. Patient on June 06 had a significant GI bleed when he described both vomiting blood and dock stools. He presented to [facility]. From there he was transferred to [facility]. He sees EGD was carried out on several vessels were cauterized. He was due to have a camera study tomorrow. Patient says states since he was discharged on June 09 he's been having pain in the right leg more significant. His feet are always cold. He started developing more cramping. No symptoms yesterday. 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 Hadley from bed he was sent in by Dr. Villegas who called me to admit the patient. Patient be started on IV heparin. CT angiogram in the ER showed infrarenal abdominal aortic showing significant arterial disease including complete occlusion of the right, and a lytic artery as well as the right external iliac artery with some distal reconstitution likely via collaterals. June 30: Patient yesterday had the EKOS system placed on the right site in the common femoral artery/right external iliac artery by Dr. Villegas. TPA was infused. EKOS was subsequently discontinued. Currently on TPN IV heparin. In the ICU. Having significant pain in the right leg. This discoloration of the toes. Today repeat angiogram revealed occluded right common and right external iliac artery with no opacification of the right common and right profunda and right SFA. At this point Dr. Villegas is continuing with infusing TPA. I'm arranging for a small bowel capsule endoscopy to be done on . July 01: Patient was taken back to the Operating Table Assembler by Dr. Villegas today. Successful balloon angioplasty of the right common iliac artery was done. Right external iliac is patent. Capsule study has been arranged for tomorrow. This point will continue with Plavix and eliquis. PPI to continue. Patient has remained at a high risk of bleeding. Discussed with patient. Patient had TPA leading to this morning. Currently on IV heparin. July 02: Warmth in the right leg. Toe bluish discoloration.. Patient refused small bowel capsule endoscopy last night. Relevant as an outpatient. Patient again reminded about smoking. Medications follow-up discussed. Follow-up with vascular. Risk-benefit was discussed with the patient bit anticoagulation. And antiplatelet agents given recent GI bleed. Patient will continue current regime. Discussion and discharge planning more than 35 minutes Past medical history to include: Recent upper GI bleed on June 06 with cauterization of vessels. More details unknown. CAD with stent, COPD, GERD, stroke, hypertension, hyperlipidemia, osteoporosis, PAD, Social history: Lives with his friend. Drinks up to 6 beers a day. Smokes about a pack to pack and a half for last 40 years. Occasional marijuana. Family history: DVT, cancer Physical examination: VITAL SIGNS: 81, 17, 122/72, 93% room air GENERAL: reclining in bed awake comfortable EYES: Pupils equal. Conjunctiva normal. HEENT: External appearance of nose and ears normal, oral cavity grossly normal. NECK: JVD not raised; masses not palpable. HEART: First and second heart sounds are normal; no edema. LUNGS: Respiratory rate increased; decreased breath sounds, wheezing. ABDOMEN: Soft, nontender, liver spleen not palpable, no masses palpable. PSYCH: Alert and oriented x3; mood and affect anxiousl. MUSCULOSKELETAL:No Clubbing/cyanosis;muscles-grossly intact EXTREMITIES: . Decreased sensation distally. Right leg distal toes blue discoloration. Doppler positive for pulse. INVESTIGATIONS, reviewed in the clinical context: July 02: White count 11.2 hemoglobin 10.9 platelets 223 potassium 4 creatinine 1.04 July 01: White count 12.1 hemoglobin 11.3 potassium 4.3 creatinine 1.16 June 30: White count 13.2 hemoglobin 11.9 platelets 275 creatinine 1.17 White count 9.9 hemoglobin 14.7 platelets 372 potassium 4.7 creatinine 1.13 EKG tracing personally reviewed by me-sinus rhythm, 77 CT angiography of the abdomen out with runoff: Extensive PAD. More details in the report. Complete occlusion of the right common iliac artery and of the as well as the right external iliac artery. The distal reconstitution likely via collaterals. Assessment and plan: -Acute occlusion in a patient with known severe PAD of the right common iliac artery. : Patient underwent EKOS on June 29. More details Dr. Villegas notes. -Recent upper GI bleed with gastric vessels cauterization. Increase PPI to t wice daily. Patient was due to get up capsule endoscopy at [facility]. GI services not available the hospital this week. Capsule endoscopy was at age but patient declined for now. Relevant as outpa tient. -Severe PAD in a patient who continues smoke and prior intervention. Antiplatelet agents. Lipitor. -Acute COPD exacerbation in a current smoker DuoNeb 4 times a day. Pulmicort nebulizer twice a day. DC on Symbicort 160/4.5 one puff twice a day. Albuterol when necessary. -Chronic nicotine dependence, current cigarette smoker Nicotine patch 21 -Primary osteoarthritis multiple joints bilaterally Tylenol when necessary -Essential hypertension -Hyperlipidemia Lipitor to 80 mg daily at bedtime -GERD PPI -CAD with a prior history of stent Plavix. Lipitor. -IV heparin monitoring Follow PTT -IV TPA monitoring: Discontinued Disposition: Home Plan - Discharge Summary New Discharge Prescriptions: New Apixaban [Eliquis] 2.5 mg PO BID #60 tablet Atorvastatin [Lipitor] 80 mg PO HS #30 tab Budesonide-Formot 160-4.5 Mcg [Symbicort 160-4.5 Mcg Inhaler] 1 puff INHALATION BID #1 each Acetaminophen Tab [Tylenol] 650 mg PO Q4H PRN #1 tab PRN Reason: Pain Albuterol Inhaler [Ventolin Hfa Inhaler] 1 puff INHALATION RT-QID PRN #8 gm PRN Reason: Wheezing Nicotine 21Mg/24Hr Patch [Habitrol] 1 patch TRANSDERM DAILY #14 patch Continue Clopidogrel [Plavix] 75 mg PO DAILY #30 tab Ferrous Sulfate [Iron (65 MG Elemental)] 325 mg PO DAILY Magnesium Oxide [Mag-Ox] 400 mg PO DAILY Pantoprazole Sodium 40 mg PO AC-BID Discontinued Atorvastatin [Lipitor] 20 mg PO HS Discharge Medication List Clopidogrel [Plavix] 75 mg PO DAILY #30 tab 11/06/14 [Rx] Ferrous Sulfate [Iron (65 MG Elemental)] 325 mg PO DAILY 05/09/22 [History] Magnesium Oxide [Mag-Ox] 400 mg PO DAILY 06/29/21 [History] Pantoprazole Sodium 40 mg PO AC-BID 06/29/21 [History] Acetaminophen Tab [Tylenol] 650 mg PO Q4H PRN #1 tab 07/02/21 [Rx] Albuterol Inhaler [Ventolin Hfa Inhaler] 1 puff INHALATION RT-QID PRN #8 gm 07/02/21 [Rx] Apixaban [Eliquis] 2.5 mg PO BID #60 tablet 07/02/21 [Rx] Atorvastatin [Lipitor] 80 mg PO HS #30 tab 07/02/21 [Rx] Budesonide-Formot 160-4.5 Mcg [Symbicort 160-4.5 Mcg Inhaler] 1 puff INHALATION BID #1 each 07/02/21 [Rx] Nicotine 21Mg/24Hr Patch [Habitrol] 1 patch TRANSDERM DAILY #14 patch 07/02/21 [Rx] Follow up Appointment(s)/Referral(s): Can Ott MD [STAFF PHYSICIAN] - 1 Week (Follow up with Dr. Nelson Evans, 07/08 at 0900) Alivia Stanton MD [Primary Care Provider] - 1-2 days (Please call to make your appointment) Patient Instructions/Handouts: How to Stop Smoking (GEN), Peripheral Artery Disease (GEN), Surgical Site Infections (GEN), Peripheral Vascular Angioplasty (DC) Activity/Diet/Wound Care/Special Instructions: Follow-up at [facility] for his GI workup as before Discharge Disposition: HOME SELF-CARE
== END 2021-07-02 16:30 | disposition home or self-care (01) | DRG 253 ==
LOC: EC 11:40 → 3SCARD 12:25 → 2SICU 18:24
PROVIDERS: ADMIT Hospitalist; ATTEND Hospitalist
PROC: 04FK3Z0 Fragmentation of Right Femoral Artery, Percutaneous Approach, Ultrasonic (ICD-10-PCS; principal; 2021-06-29 15:55)
PROC: 04F Lower Arteries, Fragmentation (ICD-10-PCS; principal; 2021-06-29 15:55)
PROC: B4101ZZ Fluoroscopy of Abdominal Aorta using Low Osmolar Contrast (ICD-10-PCS; principal; 2021-06-29 15:55)
PROC: 3E05317 Introduction of Other Thrombolytic into Peripheral Artery, Percutaneous Approach (ICD-10-PCS; principal; 2021-06-29 15:55)
PROC: B41F1ZZ Fluoroscopy of Right Lower Extremity Arteries using Low Osmolar Contrast (ICD-10-PCS; principal; 2021-06-29 15:55)
PROC: 04F Lower Arteries, Fragmentation (ICD-10-PCS; 2021-06-30)
PROC: B41F1ZZ Fluoroscopy of Right Lower Extremity Arteries using Low Osmolar Contrast (ICD-10-PCS; 2021-06-30)
PROC: 04F Lower Arteries, Fragmentation (ICD-10-PCS; 2021-06-30)
PROC: B4101ZZ Fluoroscopy of Abdominal Aorta using Low Osmolar Contrast (ICD-10-PCS; 2021-06-30)
PROC: 3E05317 Introduction of Other Thrombolytic into Peripheral Artery, Percutaneous Approach (ICD-10-PCS; 2021-06-30)
PROC: 047C3ZZ Dilation of Right Common Iliac Artery, Percutaneous Approach (ICD-10-PCS; 2021-07-01 07:30)
DX: I70.221 Atherosclerosis of native arteries of extremities with rest pain, right leg (principal); J44.1 Chronic obstructive pulmonary disease with (acute) exacerbation; T82.856A Stenosis of peripheral vascular stent, initial encounter; E78.5 Hyperlipidemia, unspecified; I10 Essential (primary) hypertension; H91.90 Unspecified hearing loss, unspecified ear; K21.9 Gastro-esophageal reflux disease without esophagitis; I25.2 Old myocardial infarction; M15.9 Polyosteoarthritis, unspecified; M81.0 Age-related osteoporosis without current pathological fracture; N42.9 Disorder of prostate, unspecified; F17.210 Nicotine dependence, cigarettes, uncomplicated; Z71.6 Tobacco abuse counseling; I25.10 Atherosclerotic heart disease of native coronary artery without angina pectoris; Z79.02 Long term (current) use of antithrombotics/antiplatelets; Z79.899 Other long term (current) drug therapy; Z86.73 Personal history of transient ischemic attack (TIA), and cerebral infarction without residual deficits; Z87.19 Personal history of other diseases of the digestive system; Z95.5 Presence of coronary angioplasty implant and graft; Z90.89 Acquired absence of other organs; Z87.81 Personal history of (healed) traumatic fracture; Z86.79 Personal history of other diseases of the circulatory system; Z98.890 Other specified postprocedural states; Z88.5 Allergy status to narcotic agent; Z82.49 Family history of ischemic heart disease and other diseases of the circulatory system; Z80.9 Family history of malignant neoplasm, unspecified; Z83.2 Family history of diseases of the blood and blood-forming organs and certain disorders involving the immune mechanism
CPT/HCPCS: 36200; 36415; 37211; 37213; 37214; 37220; 71045; 75625; 75635; 75716; 80048; 80053; 82150; 82565; 83690; 84520; 85025; 85384; 85610; 85730; 86850; 86900; 86901; 93005; 96361; 96365; 96375; 99285

== ENCOUNTER 2021-11-20 06:05 | Day surgery (SDC) | payer OTHER ==
[2021-11-19 08:52] VITALS: BMI 23.8
[~2021-11-20 06:05] MED LIST: ALPRAZolam 0.25 MG TAB PO PRN; ASPIRIN 325 MG TAB PO PRN; SODIUM CHLORIDE 0.9% 1,000 ML in EMPTY BAG 1 BAG IV ONE
[2021-11-20] MEDS ORDERED: SODIUM CHLORIDE 0.9% 1,000 ML IV ONE (06:31)
[2021-11-20 07:03] VITALS: RESP 16; TEMP 98.4
[2021-11-20] MEDS ORDERED: MIDAZOLAM 2 MG/2 ML VIAL IV ONE (07:44)
[2021-11-20] MEDS ORDERED: LIDOCAINE 1% INJ 10MG/ML (30 ML VIAL-PF) SQ ONE (07:46)
[2021-11-20] MEDS ORDERED: IOPAMIDOL-250 100ML BTL INTRAARTER ONE (08:01)
[2021-11-20] MEDS ORDERED: NALOXONE 0.4 MG/ML 1 ML VIAL IVP PRN (08:05)
--- NOTE | 2021-11-20 08:12 | P.PCN ---
Date of Procedure: 11/20/21 Operative Findings: AN ABDOMINAL AORTOGRAM AND BILATERAL LOWER EXTREMITIES RUNOFF PERFORMING PHYSICIAN: Can Ott MD PROCEDURE PERFORMED: 1. An abdominal aortogram 2. Bilateral lower extremities runoff INDICATION: Bilateral lower extremities intermittent claudication seems to be disabling interfering with the patient physical activity 5-year-old gentleman who is known to have PAD with prior bilateral iliac stenting. COMPLICATION: None LEVEL OF SEDATION: Moderate was sedation length of 16 minutes APPROACH: Right common femoral artery PROCEDURE DESCRIPTION: After obtaining informed consent and explaining the procedure benefits, risks, and complications, the patient was brought to the cardiac laboratory veterinarian. The right groin was prepped and draped in sterile fashion. The right common femoral artery was cannulated using micropuncture technique, under ultrasound guidance. A micropuncture wire was advanced, and the micropuncture sheath was advanced over the wire, then the micropuncture sheath was exchanged over an 0.35 wire into a 5-[place] sheath dilator assembly then the wire and dilator were removed and sheath was flushed. We did an abdominal aortogram and bilateral lower extremities runoff using 5- [place] pigtail catheter using a power injection. The catheter was initially placed at the level of the renal arteries, and it was pulled into above the bifurcation of the aorta into right and left common iliac arteries. The procedure was completed and there was no complications. SELECTIVE PERIPHERAL ANGIOGRAM: The abdominal aorta: Is calcified with mild disease only. The common iliac arteries: The right common iliac stent appears to be occluded. The left common iliac stent appears to have a lesion in the range of 60%. The external iliac arteries: The right external iliac artery appeared to be occluded. The left external iliac artery appeared to have also intermediate lesion in the range of 60%. The internal iliac arteries: Both internal iliac arteries were not visualized. The common femoral arteries: The right common femoral artery was not well opacified. The left common femoral artery appeared to have intermediate disease and appeared to be extremely calcified. Superficial femoral arteries: The right and left SFA are subtotally occluded. Popliteal arteries: The right and left popliteal appeared to have mild to moderate diffuse disease Below the knees: The arteries below the knee were not well-visualized CONCLUSION: Occluded right common and right external iliac arteries. Intermediate disease involving the left common and left external iliac arteries Intermediate bilateral common femoral arteries Subtotally occluded bilateral SFA POSTPROCEDURE MANAGEMENT: MANAGER OF NETWORK of the right common and right external iliac artery and assess the hemodynamic significance of the left common iliac
[2021-11-20] MEDS ORDERED: SODIUM CHLORIDE 0.9% 1,000 ML in EMPTY BAG 1 BAG IV SCH (08:15)
--- NOTE | 2021-11-20 08:54 | IR ---
Fluoroscopy HISTORY: Pain in bilateral legs 1.7 minutes fluoroscopy time supplied to the referring clinician. 197 intraoperative C-arm images do cument the procedure. See dictated report from cardiology.
[2021-11-20 14:36] VITALS: BP 143/75; PULSE 71
== END 2021-11-20 13:54 | disposition home or self-care (01) ==
LOC: CATHCVL 06:05
PROVIDERS: ATTEND Internal Medicine Interventional Cardiology
DX: T82.856A Stenosis of peripheral vascular stent, initial encounter (principal); I70.0 Atherosclerosis of aorta; I77.1 Stricture of artery; Z95.5 Presence of coronary angioplasty implant and graft; F17.200 Nicotine dependence, unspecified, uncomplicated; I10 Essential (primary) hypertension; Z20.822 Contact with and (suspected) exposure to COVID-19; E78.5 Hyperlipidemia, unspecified; Z82.49 Family history of ischemic heart disease and other diseases of the circulatory system; Z88.5 Allergy status to narcotic agent; Z79.02 Long term (current) use of antithrombotics/antiplatelets; Z79.899 Other long term (current) drug therapy
CPT/HCPCS: 36200; 75625; 75716; 76937; 84132; 87635; C1769 ×4; C1894; J2250; J2001; Q9966

== ENCOUNTER 2021-12-23 06:04 | Day surgery (SDC) | payer OTHER ==
[2021-12-23] MEDS ORDERED: SODIUM CHLORIDE 0.9% 1,000 ML IV ONE (06:26)
[2021-12-23] MEDS: ALPRAZolam 0.25 MG TAB PO PRN ×2 (06:28→20:41)
[2021-12-23 06:31] LABS: Anisocytosis Slight; Basophils # (A) 0.1 k/uL (0-0.2); Basophils % (A) 1 %; Eosinophils # (A) 0.2 k/uL (0-0.7); Eosinophils % (A) 3 %; HCT 41.3 % (39.0-53.0); HGB 13.5 gm/dL (13.0-17.5); Hypochromasia Slight; Lymphocytes # (A) 1.2 k/uL (1.0-4.8); Lymphocytes % (A) 17 %; MCH 28.9 pg (25.0-35.0); MCHC 32.7 g/dL (31.0-37.0); MCV 88.3 fL (80.0-100.0); Mean Platelet Volume 8.8; Monocytes # (A) 0.9 k/uL (0-1.0); Monocytes % (A) 13 %; Neutrophils # (A) 4.3 k/uL (1.3-7.7); Neutrophils % (A) 62 %; Platelet Count 271 k/uL (150-450); RBC 4.68 m/uL (4.30-5.90); RDW 16.9 % (11.5-15.5)
[2021-12-23 06:40] LABS: Calcium 9.5 mg/dL (8.4-10.2); Potassium 4.3 mmol/L (3.5-5.1)
[2021-12-23] MEDS ORDERED: ASPIRIN 325 MG TAB PO PRN (07:00)
[2021-12-23] MEDS ORDERED: LIDOCAINE 1% INJ 10MG/ML (30 ML VIAL-PF) SQ ONE (07:57)
[2021-12-23] MEDS ORDERED: MIDAZOLAM 2 MG/2 ML VIAL IV ONE ×2 (07:58→09:00)
[2021-12-23] MEDS ORDERED: HEPARIN SODIUM 1,000 UN/ML (10ML VL) IV ONE (08:11)
[2021-12-23] MEDS ORDERED: ALBUTEROL HFA INHALER INHALATION PRN (09:25)
[2021-12-23] MEDS ORDERED: NALOXONE 0.4 MG/ML 1 ML VIAL IVP PRN (09:26)
[2021-12-23] MEDS ORDERED: SODIUM CHLORIDE 0.9% 1,000 ML in EMPTY BAG 1 BAG IV SCH (09:30)
--- NOTE | 2021-12-23 09:39 | P.PCN ---
Date of Procedure: 12/23/21 Operative Findings: PERCUTANEOUS PERIPHERAL INTERVENTION Performing physician Can Ott M.D. Procedure performed #1 successful stenting of the right and left GABBIE using 8.0 x 59 mm on the right and 8.0 x 39 mm on the left using balloon expandable stents #2 successful stenting of the right and left EIA using 8.0 x 1 20 millimeters on the right and 8.0 x 40 mm on the left using self-expandable stents #3 intravascular ultrasound of the aorta and bilateral common iliacs and bilateral external iliacs #4 an angiogram of the aorta and bilateral common iliacs and bilateral external iliacs #5 ultrasound-guided access of the right and left common femoral arteries #6 [] Indication This is a 61-year-old gentleman was no lower extremities peripheral arterial disease who underwent in the past stenting of both iliacs was seen in the office recently for severe bilateral lower except is intermittent claudication. He underwent an angiogram and that revealed occluded right iliac and severe disease involving the left iliac. In the light of that he was brought today to undergo an intervention Approach Right and left common femoral arteries Complications None Level of sedation Moderate with a sedation time of 85 minutes Procedure description After obtaining an informed consent the patient was brought to the cardiac laboratory cureman. The right and left common femoral arteries were cannulated using micropuncture technique under ultrasound guidance, the micropuncture wire passed easily then I placed a 6-[place] 23 cm bright tip sheath in the right and left common femoral arteries after I predilated using initially 5-[place] and then 6- [place] dilators. At that point anticoagulation was initiated using heparin with continuous ACT monitoring throughout the case. After that I did cross the chronic total occlusion of the right common iliac artery using 035 stiff Glidewire and the wire was advanced all the way to the thoracic aorta. I did also across the lesion in the left common iliac artery using both 35 stiff Glidewire as well and the wire was advanced all the way to the thoracic aorta. After that I decided to do intravascular ultrasound of the right and left common iliac arteries in the light of being stented from before and that severe in- stent restenosis. I did exchange my 035 wire into 014 wire using 035 catheters. Intravascular ultrasound of the right common iliac artery was about 7 mm in diameter and the left common iliac artery was about 7 mm in diameter. Also that showed that the diameter of the right and left external iliac arteries were also about 7 mm in diameter's. I did initially kissing balloon of the right and left iliacs using 6 mm balloon and it was 60 mm on the left and 100 mm on the right. Both balloons were inflated under 12 andres. Subsequently I decided to do kissing stents of the right and left common iliac artery using balloon expandable stents. I deployed on the right 8 mm x 59 mm Omnilink balloon expandable stent and on the left 8 mm x 39 mm Omnilink. Both stents were positioned under fluoroscopy guidance and deployed under fluoroscopy guidance in a kissing technique. After that because there was lesions involving the right and left external iliac arteries I decided to cover that as well with the stents. On the right side I deployed a 8 mm x 120 mm Zilver PTX drug-coated stent and on the left I deployed a 8 mm x 40 mm just a standard self-expandable stents. Both stents were postdilated using 7 mm balloon. The final angiogram showed excellent angiographic results widely dual injection under digital subselection. After that I decided to exchange my long sheath into an 11 cm standard 6-[place] sheath over 035 wire. The procedure was completed without any complication. Postprocedure management #1 dual antiplatelet therapy #2 aggressive cholesterol control #3 risk factors modification #4 follow-up with the patient
[2021-12-23] MEDS ORDERED: HYDROmorphone 1 MG/ML 1 ML SYRINGE IVP ONE (09:41)
[2021-12-23] MEDS ORDERED: IOPAMIDOL-250 100ML BTL INTRAARTER ONE (09:41)
--- NOTE | 2021-12-23 10:21 | IR ---
EXAMINATION TYPE: IR stent intravascular non coronary DATE OF EXAM: 12/23/2021 CLINICAL HISTORY: Peripheral arterial disease. TECHNIQUE: Fluoroscopy. COMPARISON: None. FINDINGS: Fluoroscopic guidance was provided during pelvic angiogram with stent insertion procedure performed by Dr. Ott. A total of 18 minutes 18 seconds of fluoroscopic time was utilized during the procedure and 448 spot images was acquired. Please refer to procedure note for further details. IMPRESSION: As Above.
[2021-12-23] MEDS ORDERED: hydrALAZINE HCL 20 MG/ML 1 ML VIAL ONE (11:15)
[2021-12-23] MEDS ORDERED: hydrALAZINE HCL 20 MG/ML 1 ML VIAL IVP STA ×2 (11:20)
[2021-12-23] MEDS ORDERED: ENALAPRILAT 1.25 MG/ML 1 ML VIAL IVP STA (11:21)
[2021-12-23] MEDS ORDERED: HYDROmorphone 0.5 MG/0.5 ML SYRINGE IVP STA (13:18)
[2021-12-23] MEDS: SYMBICORT 160-4.5 MCG INHALER INHALATION SCH (19:25)
[2021-12-23] MEDS ORDERED: ATORVASTATIN 80 MG TAB PO SCH (21:00)
[2021-12-24] MEDS ORDERED: PANTOPRAZOLE 40 MG TABLET PO SCH (07:30)
--- NOTE | 2021-12-24 07:50 | P.DS ---
Providers Attending physician: Can Ott Primary care physician: Alivia Morataya [facility] Course: This is a 61-year-old gentleman with lower extremities peripheral arterial disease was seen in the office recently for bilateral lower 70s intermittent claudication. He is known to have severe PAD from before and he underwent stenting of bilateral iliacs before. He underwent an angiogram which revealed occluded right iliac and severe disease involving the left iliac. 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 He was seen this morning. He is doing well overall. He is stable hemodynamically with marginally low blood pressure but a lot of 90 mmHg systolic. He reports no dizziness or lightheadedness and no presyncope or syncope and no symptoms of chest pain or chest discomfort. The groins are soft and nontender and without any bruises I'm going to discharge the patient home on dual antiplatelet therapy along with high intensity statin and I'll follow-up with the patient in a week in the office Plan - Discharge Summary Discharge Rx Participant: No New Discharge Prescriptions: Continue Clopidogrel [Plavix] 75 mg PO DAILY #30 tab Ferrous Sulfate [Iron (65 MG Elemental)] 325 mg PO DAILY Atorvastatin [Lipitor] 80 mg PO HS #30 tab Budesonide-Formot 160-4.5 Mcg [Symbicort 160-4.5 Mcg Inhaler] 1 puff INHALATION BID #1 each Albuterol Inhaler [Ventolin Hfa Inhaler] 1 puff INHALATION RT-QID PRN #8 gm PRN Reason: Wheezing Aspirin [Children's Aspirin] 81 mg PO DAILY Pantoprazole Sodium 40 mg PO DAILY Discharge Medication List Clopidogrel [Plavix] 75 mg PO DAILY #30 tab 11/06/14 [Rx] Ferrous Sulfate [Iron (65 MG Elemental)] 325 mg PO DAILY 06/29/21 [History] Pantoprazole Sodium 40 mg PO DAILY 06/29/21 [History] Albuterol Inhaler [Ventolin Hfa Inhaler] 1 puff INHALATION RT-QID PRN #8 gm 07/02/21 [Rx] Atorvastatin [Lipitor] 80 mg PO HS #30 tab 07/02/21 [Rx] Budesonide-Formot 160-4.5 Mcg [Symbicort 160-4.5 Mcg Inhaler] 1 puff INHALATION BID #1 each 07/02/21 [Rx] Aspirin [Children's Aspirin] 81 mg PO DAILY 11/19/21 [History] Follow up Appointment(s)/Referral(s): Can Ott MD [STAFF PHYSICIAN] - 1 Week (APPOINTMENT MADE ON December @ 1:15PM AT THE [facility]ICE) Patient Instructions/Handouts: *Surgery [facility] - After Heart Catheterization - [facility] Animal Instructions, Peripheral Artery Disease (ED), Moderate Sedation (DC) Activity/Diet/Wound Care/Special Instructions: *NO LIFTING, PUSHING, OR PULLING ANYTHING OVER 5 POUNDS FOR 5 DAYS *NO DRIVING FOR 3 DAYS *YOU CAN SHOWER TOMORROW BUT DO NOT SUBMERSE YOUR PUNCTURE SITE IN WATER FOR A FEW DAYS TO PREVENT INFECTION - SO NO TUB BATHS, POOLS, HOT TUBS...ETC *ANY SIGNS OF BLEEDING (HARDNESS, SWELLING, OR EXCESSIVE BRUISING) HOLD DIRECT PRESSURE ON YOUR PUNCTURE SITE AND COME TO THE NEAREST EMERGENCY ROOM TO GET YOUR PUNCTURE SITE LOOKED AT - DO NOT DRIVE YOURSELF!
[2021-12-24] MEDS: SYMBICORT 160-4.5 MCG INHALER INHALATION SCH (08:22)
[2021-12-24 08:28] VITALS: BP 93/59; PULSE 86; RESP 14; TEMP 98.7
[2021-12-24] MEDS ORDERED: FERROUS SULFATE 325 MG TAB PO SCH (09:00)
[2021-12-24] MEDS ORDERED: CLOPIDOGREL 75 MG TAB PO SCH (09:00)
[2021-12-24] MEDS ORDERED: ASPIRIN 81 MG PO SCH (09:00)
== END 2021-12-24 09:50 | disposition home or self-care (01) ==
LOC: CATHCVL 06:04 → 3SCARD 09:22 → CATHCVL 12-24 09:50
PROVIDERS: ATTEND Internal Medicine Interventional Cardiology
DX: I73.9 Peripheral vascular disease, unspecified (principal); I25.10 Atherosclerotic heart disease of native coronary artery without angina pectoris; I10 Essential (primary) hypertension; E78.5 Hyperlipidemia, unspecified; F17.200 Nicotine dependence, unspecified, uncomplicated; Z88.5 Allergy status to narcotic agent
CPT/HCPCS: 37221; 37223; 37252; 37253; 80048; 82565; 85025; C1769 ×6; C1894 ×2; C1725; C1876 ×2; C1753; C1874; J2250; J0360; J2001; J1644; J1170 ×2; Q9966